=== PATIENT | female | born 1950 | race Caucasian/White ===

== ENCOUNTER → 2018-02-15 | Outpatient (CLI) | payer MEDICARE, OTHER ==
[~2018-02-15] MED LIST: ASPI-715 PO; CALC-852 PO; CYCOD OP; DOCU-416 PO; EST3 PO; GLUC1TAB6 PO; IBUP-136 PO; IBUP600T22 PO; IRB150 PO; LEV88 PO; MELA3TAB31 PO; NAPR220C12 PO; NIA500 PO; OMEP40CA48 PO; OXYC-865 PO; PRAV20TA65 PO
--- NOTE | 2018-02-16 15:23 | RADIOLOGY IMAGING REPORT ---
FACILITY: [facility] [place] PATIENT NAME: ODALYS DORSEY : [id number] MR: [id number] V: [id number] EXAM DATE: [id number] ORDERING PHYSICIAN: KENROY CORONADO TECHNOLOGIST: Viji Barksdale PROCEDURE:BILATERAL DIGITAL SCREENING MAMMOGRAM WITH CAD ASSISTED INTERPRETATION & 3D TOMOSYNTHESIS COMPARISON:Prior mammograms 12/28/2016. INDICATIONS:SCREENING FINDINGS: Breast tissue demonstrates scattered fibroglandular tissue elements. There is no suspicious mass, calcification, or architectural distortion. DIAGNOSTIC CATEGORY 1--NEGATIVE. RECOMMENDATIONS: ROUTINE MAMMOGRAM AND CLINICAL EVALUATION. IMPRESSION: BIRADS 1: Negative. No mammographic evidence for malignancy. Dictated by: Vikas Tinajero M.D. on 02/16/2018 at 10:31 Transcribed by: NIRALI on 02/16/2018 at 10:40 Approved by: Vikas Tinajero M.D. on 02/16/2018 at 15:22 [facility]
== END ==
LOC: MAMO 03:09
PROVIDERS: ATTEND Obstetrics & Gynecology
DX: Z12.31 Encounter for screening mammogram for malignant neoplasm of breast (principal)
CPT/HCPCS: 77063; 77067